=== PATIENT | female | born 1950 | race Caucasian/White ===

== ENCOUNTER 2017-06-14 12:00 | Emergency (ER) | payer MEDICARE, OTHER ==
[~2017-06-14] VITALS: Ht 154.9 cm; Wt 67.7 kg
[2017-06-14 13:07] VITALS: BP 138/96
[2017-06-14] MEDS ORDERED: LEVO25TA9 PO (13:07)
== END 2017-06-14 13:56 | disposition home or self-care (01) ==
LOC: EMS 12:05
DX: K04.7 Periapical abscess without sinus (principal); K02.9 Dental caries, unspecified
CPT/HCPCS: 99283

== ENCOUNTER 2018-12-14 22:04 | Emergency (ER) | payer MEDICARE, OTHER ==
[~2018-12-14] VITALS: Ht 152.4 cm; Wt 67.0 kg
[~2018-12-14 22:04] MED LIST: LEVO25TA9 PO
[2018-12-14 22:41] LABS: APPEARANCE,URINE CLOUDY (CLEAR); BILIRUBIN,URINE NEGATIVE (NEGATIVE); GLUCOSE, URINE (UA) NEGATIVE (NEGATIVE); KETONES,URINE NEGATIVE (NEGATIVE); LEUKOCYTE ESTERASE ,URINE NEGATIVE (NEGATIVE); NITRATE,URINE NEGATIVE (NEGATIVE); OCCULT BLOOD,URINE SMALL (NEGATIVE); PH,URINE 6.5 (5.0-8.0); PROTEIN,URINE NEGATIVE (NEGATIVE)
[2018-12-14 22:41] LABS: HEMATOCRIT 42.1 % (36-46); HEMOGLOBIN 13.9 g/dL (12.0-16.0); MEAN CORPUSCULAR HEMOGLOBIN 29.1 pg (26.0-34.0); MEAN CORPUSCULAR VOLUME 88 fL (80-100); PLATELET COUNT (AUTO) 264 K/uL (150-450); RED BLOOD CELL COUNT(AUTO) 4.77 MIL/uL (4.00-5.20); RED CELL DISTRIBUTION WIDTH 12.9 % (11.5-14.5)
[2018-12-14 22:49] LABS: CALCIUM, TOTAL 9.6 mg/dL (8.8-10.5); CREATININE 0.99 mg/dL (0.60-1.30); POTASSIUM 3.8 mmol/L (3.5-5.1)
[2018-12-14 22:51] LABS: BACTERIA,URINE Rare /HPF (None Seen); SQUAMOUS EPITHELIAL CELL,UR Few /LPF (None Seen)
[2018-12-14 22:56] LABS: ALBUMIN 3.6 g/dL (3.4-5.0); BILIRUBIN,TOTAL 0.5 mg/dL (0.1-1.0); TOTAL PROTEIN, SERUM 7.6 g/dL (6.4-8.2)
[2018-12-14 23:09] LABS: BAND NEUTROPHILS % (MANUAL) 22 % (0-5); LYMPHOCYTES % (MANUAL) 5 % (22-44); MONOCYTES % (MANUAL) 4 % (2-9); SEGMENTED NEUTROPHILS % 69 % (40-70)
[2018-12-14] MEDS ORDERED: IOVERSOL 350 MG/ML 100 ML VIAL ONE (23:20)
[2018-12-14] MEDS ORDERED: SODIUM CHLORIDE 0.9% 100 ML ONE (23:20)
[2018-12-15 00:33] LABS: ACETAMINOPHEN < 2 mcg/mL (10-30)
[2018-12-15] MEDS ORDERED: MetroNIDAZOLE 500 MG/NACL 100 ML IV ONE (02:45)
[2018-12-15] MEDS ORDERED: CIPROFLOXACIN 400 MG/D5% WATER 200 ML IV ONE (02:45)
[2018-12-15] MEDS ORDERED: ACETAMINOPHEN 325 MG TABLET ONE (02:57)
[2018-12-15] MEDS ORDERED: ACETAMINOPHEN 325 MG TABLET PO ONE (03:00)
[2018-12-15 04:18] VITALS: BP 109/66
== END 2018-12-15 04:35 | disposition home or self-care (01) ==
LOC: EMS 22:06
DX: K52.9 Noninfective gastroenteritis and colitis, unspecified (principal); D72.825 Bandemia; E03.9 Hypothyroidism, unspecified
CPT/HCPCS: 36415; 74177; 80053; 81001; 83605; 83690; 84484; 85025; 87040; 93005; 96365; 96366; 96368; 99284; G0481; J0744; J3490; J7050; Q9967